=== PATIENT | female | born 1995 ===

== ENCOUNTER 2017-03-21 13:36 | Emergency (ER) | payer OTHER ==
[2017-03-21 13:53] VITALS: BP 93/58; PULSE 73; TEMP 98.7; O2SAT 98
--- NOTE | 2017-03-21 14:59 | RAD ---
PROCEDURE: Left Knee Radiographs. HISTORY: Pain. COMPARISON: None. FINDINGS: BONES: Bone alignment and mineralization are normal. There is no acute fracture or bone destruction. JOINTS: The joint spaces are preserved. JOINT EFFUSION: None. OTHER FINDINGS: None. IMPRESSION: Normal examination.
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
[2017-03-21] MEDS ORDERED: Amoxicillin-Clav 875-125 mg Tab PO STA (15:12)
[2017-03-21] MEDS ORDERED: TDAP Vaccine 0.5 mL Syr IM ONE (15:13)
[2017-03-21 15:51] VITALS: RESP 16
== END 2017-03-21 15:51 | disposition home or self-care (01) ==
LOC: ED 13:36
DX: S20.479A Other superficial bite of unspecified back wall of thorax, initial encounter (principal); Y04.1XXA Assault by human bite, initial encounter; Y93.89 Activity, other specified; Y92.89 Other specified places as the place of occurrence of the external cause; M54.9 Dorsalgia, unspecified; M25.562 Pain in left knee; Z23 Encounter for immunization
CPT/HCPCS: 72110; 73560; 90471; 90715; 96372; 99283; J1885

== ENCOUNTER 2018-05-10 14:00 | Emergency (ER) | payer OTHER ==
[2018-05-10 15:17] VITALS: TEMP 98.4; O2SAT 100
--- NOTE | 2018-05-10 15:31 | ED PDOC ---
Arrival/HPI - General Chief Complaint: Female Genitourinary Time Seen by Provider: 05/10/18 14:16 Historian: Patient - History of Present Illness Narrative History of Present Illness (Text): 05/10/18 15:28 23yo female with pmhx of herpes genitalis who present with outbreak x 4days. States she had the rash 4 days ago and it was painful earlier , but the pain resolved and she had discharge from the rash. Notes history of similar rash 5months ago and was treated for it. She otherwise denies vaginal discharge, fever, chills, abdominal pain, urinary symptoms, any other complaint. Past Medical History - Provider Review Nursing Documentation Reviewed: Yes - Genitourinary/Gynecological Hx Sexually Transmitted Diseases: Yes (Herpes, Chlamydia) - Psychiatric Hx Substance Use: No Family/Social History - Physician Review Nursing Documentation Reviewed: Yes Family/Social History: Unknown Family HX Smoking Status: Never Smoked Hx Alcohol Use: Yes Hx Substance Use: No Allergies/Home Meds Allergies/Adverse Reactions: Allergies No Known Allergies Allergy (Verified 05/10/18 15:07) Review of Systems - Physician Review All systems were reviewed & negative as marked: Yes - Review of Systems Constitutional: Normal Eyes: Normal ENT: Normal Respiratory: Normal Cardiovascular: Normal Gastrointestinal: Normal Genitourinary Female: Other (Vaginal leision ) Musculoskeletal: Normal Skin: Normal Neurological: Normal Endocrine: Normal Hemo/Lymphatic: Normal Psychiatric: Normal Physical Exam Vital Signs Reviewed: Yes Vital Signs Temp Pulse Resp BP Pulse Ox 05/10/18 16:05 70 17 112/70 100 05/10/18 15:17 98.4 F 74 18 110/62 100 Temperature: Afebrile Blood Pressure: Normal Pulse: Regular Respiratory Rate: Normal Appearance: Positive for: Well-Appearing, Non-Toxic, Comfortable Pain Distress: None Mental Status: Positive for: Alert and Oriented X 3 - Systems Exam Head: Present: Atraumatic, Normocephalic Pupils: Present: PERRL Extroacular Muscles: Present: EOMI Conjunctiva: Present: Normal Mouth: Present: Moist Mucous Membranes Neck: Present: Normal Range of Motion Respiratory/Chest: Present: Clear to Auscultation, Good Air Exchange. No: Respiratory Distress, Accessory Muscle Use Cardiovascular: Present: Regular Rate and Rhythm, Normal S1, S2. No: Murmurs Abdomen: No: Tenderness, Distention, Peritoneal Signs Genitourinary/Pelvic Exam: Present: Vaginal Lesions (Vessicular papular rash noted on right externa vulva. No surrounding erythema. No active discahrge. No other complaint.) Back: Present: Normal Inspection Upper Extremity: Present: Normal Inspection. No: Cyanosis, Edema Lower Extremity: Present: Normal Inspection. No: Edema Neurological: Present: GCS=15, CN II-XII Intact, Speech Normal Skin: Present: Warm, Dry, Normal Color. No: Rashes Psychiatric: Present: Alert, Oriented x 3, Normal Insight, Normal Concentration Medical Decision Making ED Course and Treatment: 05/10/18 23:55 PT with h/o herpes genitalis presented with outbreak and was placed on Valtrex. Referred to her PMD. She was hemodynamically stable and in no distress. - Medication Orders Current Medication Orders: Discontinued Medications Valacyclovir HCl (Valtrex) 1 gm PO STAT STA PRN Reason: Protocol Stop: 05/10/18 15:18 Last Admin: 05/10/18 16:03 Dose: 1 gm Disposition/Present on Arrival - Present on Arrival Any Indicators Present on Arrival: No History of DVT/PE: No History of Uncontrolled Diabetes: No Urinary Catheter: No History of Decub. Ulcer: No History Surgical Site Infection Following: None - Disposition Have Diagnosis and Disposition been Completed?: Yes Diagnosis: Herpes, genital Disposition: HOME/ ROUTINE Disposition Time: 15:35 Patient Plan: Discharge Condition: STABLE Discharge Instructions (ExitCare): Genital Herpes (DC) Additional Instructions: Follow up with your RESEARCH/PROGRAM DIRECTOR Return to ED for any new or worsening symptoms Prescriptions: Valacyclovir HCl [Valtrex] 1 gm PO BID #14 tablet Referrals: Vincent Braga MD [Staff Provider] - Follow up with primary Forms: [employer] (Persian)
[2018-05-10 16:21] VITALS: BP 112/70; PULSE 70; RESP 17
== END 2018-05-10 16:05 | disposition home or self-care (01) ==
LOC: ED 14:00
DX: B00.9 Herpesviral infection, unspecified (principal)